=== PATIENT | male | born 1975 | race Caucasian/White ===

== ENCOUNTER 2017-11-26 00:57 | Emergency (ER) | payer BC ==
[2017-11-26] MEDS ORDERED: Fluorescein Sodium TOPICAL* 1 MG TEST ONE (02:04)
[2017-11-26] MEDS ORDERED: Tetracaine 0.5% OPTH.SOL 4 ML* 1 DROP BTL ONE (02:09)
[2017-11-26] MEDS ORDERED: Cyclopentolate 1% OPTH.SOL* 2 ML BTL LEFT EYE PRN (02:24)
[2017-11-26] MEDS ORDERED: Ibuprofen TAB* 800 MG PO ONE (02:26)
--- NOTE | 2017-11-26 02:35 | ED ---
Stanford Nesbitt Angela, scribed for Sarah Nicolas MD on 11/26/17 at 0206 . Throat Pain/Nasal Congestion - HPI Summary HPI Summary: This pt is a 42 y/o male presenting to [facility] c/o left eye pain s/p injury today at approximately 14:30. Pt reports he was throwing cardboard out his back door when one hit him on his left eye. He notes his left eye was scratched. Pt states his pain is exacerbated with opening his eye but is still able to open it. - History of Current Complaint Chief Complaint: EDEyeProblem Time Seen by Provider: 11/26/17 01:45 Hx Obtained From: Patient Onset/Duration: Lasting Hours, Still Present Severity: Severe Associated Signs And Symptoms: Positive: Negative Cough: None Related History: Other (Noted In Comments) - left eye pain s/p injury today. - Allergies/Home Medications Allergies/Adverse Reactions: Allergies Allergy/AdvReac Type Severity Reaction Status Date / Time No Known Allergies Allergy Verified 11/26/17 01:03 PMH/Surg Hx/FS Hx/Imm Hx Endocrine/Hematology History: Denies: Hx Diabetes Cardiovascular History: Denies: Hx Hypertension Infectious Disease History: No Infectious Disease History: Reports: Traveled Outside the in Last 30 Days - [facility] - Family History Known Family History: Negative: Cardiac Disease, Hypertension, Diabetes - Social History Alcohol Use: None Substance Use Type: Reports: None Smoking Status (MU): Never Smoked Tobacco Review of Systems Negative: Fever, Chills Eyes: Other - left eye pain Cardiovascular: Negative Respiratory: Negative Gastrointestinal: Negative Genitourinary: Negative Musculoskeletal: Negative Skin: Negative Neurological: Negative All Other Systems Reviewed And Are Negative: Yes Physical Exam - Summary Physical Exam Summary: VITAL SIGNS: Reviewed. GENERAL: Patient is a well-developed and nourished male who is lying comfortable in the stretcher. Patient is not in any acute respiratory distress. HEAD AND FACE: No signs of trauma. No ecchymosis, hematomas or skull depressions. No sinus tenderness. EYES: PERRLA, EOMI x 2, No nystagmus. Left eye: no foreign body, no conjunctival injection, there is positive fluorescein uptake with corneal abrasion at 6 o'clock at the outer margin of the pupil. Right eye: no conjunctival injection. EARS: Hearing grossly intact. Ear canals and tympanic membranes are within normal limits. MOUTH: Oropharynx within normal limits. NECK: Supple, trachea is midline, no adenopathy, no JVD, no carotid bruit, no c- spine tenderness, neck with full ROM. CHEST: Symmetric, no tenderness at palpation LUNGS: Clear to auscultation bilaterally. No wheezing or crackles. CVS: Regular rate and rhythm, S1 and S2 present, no murmurs or gallops appreciated. ABDOMEN: Soft, non-tender. No signs of distention. No rebound no guarding, and no masses palpated. Bowel sounds are normal. EXTREMITIES: FROM in all major joints, no edema, no cyanosis or clubbing. NEURO: Alert and oriented x 3. No acute neurological deficits. Speech is normal and follows commands. SKIN: Dry and warm Triage Information Reviewed: Yes Vital Signs On Initial Exam: Initial Vitals Temp Pulse Resp BP Pulse Ox 97.6 F 70 16 126/90 97 11/26/17 00:59 11/26/17 00:59 11/26/17 00:59 11/26/17 00:59 11/26/17 00:59 Vital Signs Reviewed: Yes Diagnostics - Vital Signs Vital Signs Temp Pulse Resp BP Pulse Ox 11/26/17 00:59 97.6 F 70 16 126/90 97 - Laboratory Lab Statement: Any lab studies that have been ordered have been reviewed, and results considered in the medical decision making process. EENT Course/Dx - Course Course Of Treatment: Pt is a 42 y/o male who presents with left eye pain s/p injury today at approximately 14:30. On exam, pt has on left eye: no foreign body, no conjunctival injection, there is positive fluorescein uptake with corneal abrasion at 6 o'clock at the outer margin of the pupil. Pt will be discharged home with follow up from manual writer tomorrow. He will be given a prescription for Motrin. - Diagnoses Provider Diagnoses: Corneal abrasion Discharge - Discharge Plan Condition: Stable Disposition: HOME Prescriptions: Ibuprofen TAB* [Motrin TAB* 800 MG] 800 mg PO Q6H PRN #30 tab PRN Reason: Pain Patient Education Materials: Corneal Abrasion (ED) Referrals: Rick Miner MD [Primary Care Provider] - Smith Ramirez MD [Medical Doctor] - 1 Day (tomorrow) Additional Instructions: Please follow up with manual writer tomorrow. RETURN TO EMERGENCY DEPARTMENT FOR ANY NEW OR WORSENING SYMPTOMS. The documentation as recorded by the Stanford neves Angela accurately reflects the service I personally performed and the decisions made by me, Sarah Nicolas MD.
[2017-11-26] MEDS ORDERED: Ciprofloxacin 0.3% OPTH.SOL* 2.5 ML BTL LEFT EYE SCH (03:00)
[2017-11-26] MEDS ORDERED: OFLOXACIN 0.3%(OPHTH)(NF) BTL LEFT EYE SCH (03:00)
[2017-11-26 03:37] VITALS: BP 00/00
[2017-11-26] MEDS ORDERED: Gentamicin 0.3% OPTH.OINT* 3.5 GM TUBE LEFT EYE SCH (09:00)
== END 2017-11-26 03:27 | disposition home or self-care (01) ==
LOC: ED 00:57
DX: S05.02XA Injury of conjunctiva and corneal abrasion without foreign body, left eye, initial encounter (principal); W22.8XXA Striking against or struck by other objects, initial encounter; Y92.9 Unspecified place or not applicable
CPT/HCPCS: 99282; A9270-GY

== ENCOUNTER 2019-11-16 14:44 | Emergency (ER) | payer BC ==
[2019-11-16 15:10] LABS: ABS Basophils 0.1 10^3/ul (0-0.2); ABS Eosinophils 0.1 10^3/ul (0-0.6); ABS Monocytes 0.7 10^3/ul (0-0.8); ABS Neutrophils 5.5 10^3/ul (1.5-7.7); Eosinophil % 0.9 %; Hematocrit 46 % (42-52); Hemoglobin 15.9 g/dL (14.0-18.0); Lymphocyte % 23.6 %; Mean Corpuscular HGB Conc 34 g/dL (31-36); Mean Corpuscular Hemoglobin 30 pg (27-31); Mean Corpuscular Volume 87 fL (80-94); Mean Platelet Volume 9.3 fL (7.4-10.4); Nucleated Red Blood Cells % 0.1; Platelet Count 176 10^3/uL (150-450); Red Cell Distribution Width 13 % (10-15); White Blood Count 8.3 10^3/uL (3.5-10.8)
[2019-11-16 15:15] LABS: INR 1.02 (0.82-1.09)
[2019-11-16 16:10] LABS: Albumin 4.8 g/dL (3.2-5.2); Calcium 9.7 mg/dL (8.6-10.3); Potassium 3.9 mmol/L (3.5-5.0); Total Bilirubin 0.6 mg/dL (0.2-1.0)
[2019-11-16 16:16] LABS: Albumin/Globulin Ratio 1.8 (1-3); BUN/Creatinine Ratio 10.3 (8-20); EGFR African American 91.7 (>60); EGFR Non-African American 75.8 (>60); Globulin 2.6 g/dL (2-4); Total Protein 7.4 g/dL (6.4-8.9)
--- NOTE | 2019-11-16 18:06 | ED ---
HPI Chest Pain - HPI Summary HPI Summary: 44 year old male presents with chest pain for the past 2 weeks. States it may have started after he had some nausea vomiting after drinking alcohol. States has been a dull pain. States does not change with positional changes. Has not been sick recently. No cough. No shortness breath. Is unchanged with takes deep breath. He may have a family history of cardiac disease. He has no medical conditions. no recent travel. no pain or swelling in his calf muscle. Pain is worse when he touches the area. He hasn't tried anything for his pain. no drug use or smoking history. - History of Current Complaint Chief Complaint: EDChestPainROMI Time Seen by Provider: 11/16/19 17:52 Pain Intensity: 1 - Allergy/Home Medications Allergies/Adverse Reactions: Allergies Allergy/AdvReac Type Severity Reaction Status Date / Time No Known Allergies Allergy Verified 11/26/17 01:03 Home Medications: Home Medications NK [No Home Medications Reported] 11/16/19 [History Confirmed 11/16/19] PMH/Surg Hx/FS Hx/Imm Hx Endocrine/Hematology History: Denies: Hx Diabetes Cardiovascular History: Denies: Hx Hypertension Infectious Disease History: No Infectious Disease History: Denies: Traveled Outside the [place] in Last 30 Days - Family History Known Family History: Negative: Cardiac Disease, Hypertension, Diabetes - Social History Alcohol Use: Occasionally Substance Use Type: Reports: None Smoking Status (MU): Never Smoked Tobacco Review of Systems Negative: Fever Positive: Chest Pain Negative: Shortness Of Breath, Cough All Other Systems Reviewed And Are Negative: Yes Physical Exam Triage Information Reviewed: Yes Vital Signs On Initial Exam: Initial Vitals Temp Pulse Resp BP Pulse Ox 97.6 F 89 20 136/71 100 11/16/19 14:53 11/16/19 14:53 11/16/19 14:53 11/16/19 14:53 11/16/19 14:53 Vital Signs Reviewed: Yes Appearance: Positive: Well-Appearing Skin: Positive: Warm, Dry Head/Face: Positive: Normal Head/Face Inspection Eyes: Positive: Normal, Conjunctiva Clear ENT: Positive: Pharynx normal Respiratory/Lung Sounds: Positive: Clear to Auscultation, Breath Sounds Present , Other - tenderness of chest wall Cardiovascular: Positive: Normal, RRR Musculoskeletal: Positive: Normal Neurological: Positive: Normal Psychiatric: Positive: Normal Procedures - Sedation Patient Received Moderate/Deep Sedation with Procedure: No Diagnostics - Vital Signs Vital Signs Temp Pulse Resp BP Pulse Ox 11/16/19 18:01 4 11/16/19 17:57 85 8 147/87 99 11/16/19 17:54 72 7 99 11/16/19 16:37 98.2 F 71 18 126/74 99 11/16/19 14:53 97.6 F 89 20 136/71 100 - Laboratory Lab Results: Lab Results 11/16/19 11/16/19 11/16/19 Range/Units 14:54 14:54 14:54 WBC 8.3 (3.5-10.8) 10^3/uL RBC 5.30 (4.18-5.48) 10^6 /uL Hgb 15.9 (14.0-18.0) g/dL Hct 46 (42-52) % MCV 87 (80-94) fL MCH 30 (27-31) pg MCHC 34 (31-36) g/dL RDW 13 (10-15) % Plt Count 176 (150-450) 10^3/uL MPV 9.3 (7.4-10.4) fL Neut % (Auto) 66.5 % Lymph % (Auto) 23.6 % [place] % (Auto) 8.2 % Eos % (Auto) 0.9 % Baso % (Auto) 0.8 % Absolute Neuts (auto) 5.5 (1.5-7.7) 10^3/ul Absolute Lymphs (auto) 2.0 (1.0-4.8) 10^3/ul Absolute Monos (auto) 0.7 (0-0.8) 10^3/ul Absolute Eos (auto) 0.1 (0-0.6) 10^3/ul Absolute Basos (auto) 0.1 (0-0.2) 10^3/ul Absolute Nucleated RBC 0.0 10^3/ul Nucleated RBC % 0.1 INR (Anticoag Therapy) 1.02 (0.82-1.09) Sodium 139 (135-145) mmol/L Potassium 3.9 (3.5-5.0) mmol/L Chloride 105 (101-111) mmol/L Carbon Dioxide 28 (22-32) mmol/L Anion Gap 6 (2-11) mmol/L BUN 11 (6-24) mg/dL Creatinine 1.07 (0.67-1.17) mg/dL Est GFR ( Amer) 91.7 (>60) Est GFR (Non-Af Amer) 75.8 (>60) BUN/Creatinine Ratio 10.3 (8-20) Glucose 104 H (70-100) mg/dL Calcium 9.7 (8.6-10.3) mg/dL Total Bilirubin 0.60 (0.2-1.0) mg/dL AST 15 (13-39) U/L ALT 17 (7-52) U/L Alkaline Phosphatase 55 (34-104) U/L Troponin I 0.00 (<0.03) ng/mL Total Protein 7.4 (6.4-8.9) g/dL Albumin 4.8 (3.2-5.2) g/dL Globulin 2.6 (2-4) g/dL Albumin/Globulin Ratio 1.8 (1-3) Result Diagrams: 11/16/19 14:54 11/16/19 14:54 Lab Statement: Any lab studies that have been ordered have been reviewed, and results considered in the medical decision making process. - Radiology chest Radiology Interpretation Completed By: Radiologist Summary of Radiographic Findings: IMPRESSION: NO EVIDENCE FOR ACTIVE CARDIOPULMONARY DISEASE. - EKG No standard instances Cardiac Rate: NL EKG Rhythm: Sinus Rhythm Summary of EKG Findings: sinus rhythm Chest Pain Course/Dx - Course Course Of Treatment: 44 year old male presents with chest pain for the past 2 weeks. States it may have started after he had some nausea vomiting after drinking alcohol. States has been a dull pain. States does not change with positional changes. Has not been sick recently. No cough. No shortness breath. Is unchanged with takes deep breath. He may have a family history of cardiac disease. He has no medical conditions. no recent travel. no pain or swelling in his calf muscle. Pain is worse when he touches the area. He hasn' t tried anything for his pain. no drug use or smoking history. On exam has reproducible chest pain. EKG shows sinus rhythm. Troponin 02. heart score 1. Likely chest wall pain. told take ibuprofen. Told to follow up primary. Patient understands and agrees with plan. - Chest Pain Differential Diagnosis/HQI/PQRI: Angina, Chest Wall, Lower Respiratory Infection - Diagnoses Provider Diagnoses: Chest wall pain Discharge ED - Sign-Out/Discharge Documenting (check all that apply): Patient Departure - Discharge Plan Condition: Good Disposition: HOME Patient Education Materials: Chest Wall Pain (ED) Referrals: Rick Miner MD [Primary Care Provider] - Additional Instructions: Take ibuprofen or Tylenol every 6 hours as needed for pain Follow up with primary within 5 days Return to ED if develop any new or worsening symptoms - Billing Disposition and Condition Condition: GOOD Disposition: Home
[2019-11-16 18:55] VITALS: BP 124/77
== END 2019-11-16 18:54 | disposition home or self-care (01) ==
LOC: ED 14:44
DX: R07.89 Other chest pain (principal)
CPT/HCPCS: 36415; 71046; 80053; 84484; 85025; 85610; 93005; 99283